=== PATIENT | male | born 1955 ===

== ENCOUNTER 2020-06-12 08:45 | Inpatient (IN) ==
[~2020-06-12 08:45] MED LIST: Buffered Lidocaine 1% SYRIN 1 ml INTRADERM ONE; Famotidine IV 10 MG/ML 2 ml VIAL (20 mg) IV ONE; Lactated Ringers 1000 ml BAG 1,000 ML IV SCH
[2020-06-12] MEDS ORDERED: Midazolam 2 mg/2 ml VIAL 1 mg/ml 2 ml VIAL (2 mg) ONE (11:05)
[2020-06-12] MEDS ORDERED: Lidocaine 2% PF 5 ML VIAL ONE ×2 (11:05→12:27)
[2020-06-12] MEDS ORDERED: Propofol 10 MG/ML 20 ML BTL ONE (11:05)
[2020-06-12] MEDS ORDERED: ceFAZolin 2 GM PREMIX 2 GM/50 ML BAG ONE (11:47)
[2020-06-12] MEDS ORDERED: Famotidine IV 10 MG/ML 2 ml VIAL (20 mg) ONE (11:47)
[2020-06-12] MEDS ORDERED: fentaNYL 100 mcg/2 ml 50 MCG/ML VIAL ONE (12:27)
[2020-06-12] MEDS ORDERED: Midazolam 5 mg/5 ml VIAL 1 mg/ml 5 ml VIAL (5 mg) ONE (12:27)
[2020-06-12] MEDS ORDERED: ROPIVACAINE 5 MG/ML 30 ML BTL (0.5%) ONE ×2 (12:27→12:54)
[2020-06-12] MEDS ORDERED: Glycopyrrolate IV 0.2 MG/ML 1 ML VIAL ONE (14:11)
[2020-06-12] MEDS ORDERED: Phenylephrine IV 10 MG/ML 1 ml VIAL ONE (15:05)
[2020-06-12] MEDS ORDERED: HYDROmorphone 1 MG/1 ML SYRINGE IV PRN (16:23)
[2020-06-12] MEDS ORDERED: Ondansetron 4 mg VIAL 2 MG/ML 2 ml VIAL IV PRN ×2 (16:23→16:41)
[2020-06-12] MEDS ORDERED: fentaNYL 100 mcg/2 ml 50 MCG/ML VIAL IV PRN (16:23)
[2020-06-12] MEDS ORDERED: Naloxone 0.4 mg VIAL 0.4 mg/ml 1 ml VIAL IV PRN (16:23)
[2020-06-12] MEDS ORDERED: Ondansetron ODT 4 mg TAB 4 MG TAB PO PRN (16:41)
[2020-06-12] MEDS ORDERED: Magnesium Hydroxide LIQ 30 ML UDC PO PRN (16:41)
[2020-06-12] MEDS ORDERED: diPHENhydraMINE IV 50 MG/ML 1 ml VIAL (BENADRYL) IV PRN (16:41)
[2020-06-12] MEDS ORDERED: diPHENhydraMINE 25 mg TAB PO PRN (16:41)
[2020-06-12] MEDS ORDERED: Morphine 2 MG/ML SYRINGE IV PRN (16:41)
[2020-06-12] MEDS ORDERED: Lactulose 30 ml UDC PO PRN (16:41)
[2020-06-12] MEDS ORDERED: Lactated Ringers 1000 ml BAG 1,000 ML IV SCH (17:00)
[2020-06-12] MEDS: Nicotine PATCH 21 MG/24 HR PATCH TRANSDERM SCH (20:10)
[2020-06-12] MEDS: Nicotine GUM 2MG FRUIT FLAVOR PO PRN (20:12)
[2020-06-12] MEDS: Magnesium Hydroxide LIQ 30 ML UDC PO SCH (20:14)
[2020-06-12] MEDS: ceFAZolin 1 GM ADVAN 1 GM in NS 0.9% 50 ML 50 ML IVPB SCH (23:10)
[2020-06-13] MEDS: Nicotine GUM 2MG FRUIT FLAVOR PO PRN (05:46)
[2020-06-13 05:59] LABS: Hematocrit 38 % (42-52); Hemoglobin 12.8 g/dL (14.0-18.0); Mean Platelet Volume 8.1 fL (7.4-10.4); Platelet Count 233 10^3/uL (150-450)
[2020-06-13 06:13] LABS: BUN/Creatinine Ratio 23.8 (8-20); Calcium 8.9 mg/dL (8.6-10.3); EGFR African American 154.7 (>60); EGFR Non-African American 127.8 (>60); Potassium 4.2 mmol/L (3.5-5.0)
[2020-06-13] MEDS: Magnesium Hydroxide LIQ 30 ML UDC PO SCH (08:02)
[2020-06-13] MEDS: Nicotine PATCH 21 MG/24 HR PATCH TRANSDERM SCH (08:02)
[2020-06-13] MEDS: ceFAZolin 1 GM ADVAN 1 GM in NS 0.9% 50 ML 50 ML IVPB SCH ×2 (08:02→14:31)
[2020-06-13] MEDS ORDERED: Vitamin THERAPEUTIC TAB PO SCH (09:00)
[2020-06-13] MEDS ORDERED: NS 0.9% 500 ml BAG 500 ML IV SCH (10:00)
[2020-06-13 11:05] VITALS: BP 109/66
== END 2020-06-13 15:15 | disposition home or self-care (01) | DRG 470 ==
LOC: AA 11:21 → SSU 18:28
PROVIDERS: ADMIT Orthopaedic Surgery Adult Reconstructive Orthopaedic Surgery; ATTEND Orthopaedic Surgery Adult Reconstructive Orthopaedic Surgery